=== PATIENT | male | born 1945 ===

== ENCOUNTER → 2018-09-27 18:03 | Outpatient (CLI) | payer MEDICARE, BC, SELFPAY ==
--- NOTE | 2018-09-27 18:08 | DI.MRI.S_ITS ---
PROCEDURE: MR STROKE Pre- and post-contrast brain MRI, non-contrast brain MR angiogram, pre- and postcontrast neck MR angiogram INDICATIONS: TIA TECHNIQUE: Brain: Noncontrast axial T1 spin echo, axial T2 fast spin echo, sagittal and axial FLAIR, coronal T2 fast spin echo, axial gradient echo, axial diffusion and ADC through the brain. After the administration of contrast, axial 3D VIBE of the cranial vasculature and brain. Brain MRA: Non-contrast 3-D time of flight MR angiogram, with multiple ctuovoi-eentgfmso-mlgtytfwzd (MIP) reformats performed. Neck MRA: Axial and sagittal TruFISP through the neck. Coronal dynamic MR angiogram during administration of contrast in the arterial and venous phases, with 3-dimenstional iomlhzy-gjdmqbgsg-pwkhjodvnv (MIP) reformats constructed from subtraction images. COMPARISON: [facility], , STROKE PROTOCOL, 11/12/2015, 12:50. FINDINGS: Image quality: Excellent. BRAIN: CSF spaces: Ventricles are normal in size and shape. Basal cisterns are patent. No extra-axial fluid collections. Brain: No intracranial bleeds or mass effects. Age related volume loss and moderate small vessel ischemic change. Diffusion weighted images show no acute ischemic insults. Brainstem appears normal. Again noted are numerous tiny foci of hemosiderin deposition bilaterally suggesting probable amyloid angiopathy. Normal intravascular flow voids are present. No abnormal intracranial enhancement. Skull and face: Calvarial marrow signal is normal. Orbits appear normal. Sinuses: Sinuses and mastoids are clear. BRAIN MR ANGIOGRAM: No stenoses, occlusions, or aneurysms. NECK MR ANGIOGRAM: Carotids: Great vessels demonstrate a conventional anatomy as they arise from the aortic arch. Again noted is a possible proximal left common carotid artery stenosis. The bifurcation regions appear normal bilaterally. The internal carotid arteries demonstrate normal course and caliber. Posterior circulation: The origins of the vertebral arteries appear patent. More superior portions of both vertebral arteries demonstrate normal course and caliber, and join to form a normal appearing basilar artery. Miscellaneous: Subclavian arteries appear patent. Pre-contrast images through the neck show no soft tissue abnormalities. IMPRESSION: BRAIN MRI: 1. No evidence acute stroke, hemorrhage, or mass. 2. Age related volume loss and moderate small vessel ischemic change. 3. Numerous tiny foci of hemosiderin deposition suggest probable amyloid angiopathy. BRAIN MR ANGIOGRAM: Unremarkable NECK MR ANGIOGRAM: Question proximal left common carotid artery stenosis. Otherwise unremarkable MR angiogram of the neck. Dictated by: Omkar Beltran M.D. on 09/27/2018 at 20:07 Approved by: Omkar Beltran M.D. on 09/27/2018 at 20:16
[2018-09-27 19:38] LABS: BUN Creatinine Ratio 23.6 (6-22); Blood Urea Nitrogen 26 mg/dL (9-20); Calcium 9.9 mg/dL (8.4-10.2); Carbon Dioxide 33 mmol/L (22-32); Chloride 101 mmol/L (98-107); Estimated Glomerular Filt Rate > 60.0 mL/min (>60); Glucose 76 mg/dL (80-110); HEMOLYSIS < 15 (0-50); Potassium 4.3 mmol/L (3.4-5.1); Sodium 140 mmol/L (137-145)
== END ==
PROVIDERS: Family Provider Internal Medicine; PCP Internal Medicine; Visit Provider Student in an Organized Health Care Education/Training Program
DX: G45.9 Transient cerebral ischemic attack, unspecified (principal); E78.5 Hyperlipidemia, unspecified
CPT/HCPCS: 36415; 70548; 70553; 80048; A9579

== ENCOUNTER → 2018-10-02 10:42 | Outpatient (CLI) | payer MEDICARE, BC, SELFPAY ==
--- NOTE | 2018-10-02 | DI.US.S_ITS ---
PROCEDURE: US CAROTID DOPPLER BI INDICATIONS: STENOSIS TECHNIQUE: Color and pulse Doppler interrogation was performed of both carotid systems, with image documentation and velocity measurements. COMPARISON: [facility], , MR STROKE, 09/27/2018, 18:19. [facility], [place], CAROTID ARTERY DOPPLER BILAT, 11/18/2008, 11:25. FINDINGS: Stenosis calculations are based on SRU (Society of Radi[employer] in Ultrasound) criteria. The flow velocities and the arterial waveforms are normal within both carotid arterial systems. Atherosclerotic plaque is seen on both sides. The estimated degree of internal carotid artery stenosis is less than 50%. Antegrade flow is confirmed within both vertebral arteries. IMPRESSION: No hemodynamically significant stenosis is seen. No common carotid stenosis is seen on this ultrasound to correspond to the suspected stenosis on prior recent MRI. Atherosclerotic plaque is noted bilaterally. No significant change from the prior carotid ultrasound. Dictated by: Dimitry Joseph M.D. on 10/02/2018 at 12:37 Approved by: Dimitry Joseph M.D. on 10/02/2018 at 12:38
== END ==
PROVIDERS: Family Provider Internal Medicine; PCP Internal Medicine; Visit Provider Student in an Organized Health Care Education/Training Program
DX: I65.23 Occlusion and stenosis of bilateral carotid arteries (principal); I77.1 Stricture of artery
CPT/HCPCS: 93880

== ENCOUNTER → 2019-10-20 08:28 | Outpatient (CLI) | payer MEDICARE, BC, SELFPAY ==
[2019-10-20 09:56] LABS: Alanine Aminotransferase 19 IU/L (<50); Albumin 4.2 g/dL (3.5-5.0); Albumin Globulin Ratio 1.4 (1.0-2.8); Alkaline Phosphatase 70 U/L (38-126); Aspartate Aminotransferase 37 IU/L (17-59); Bilirubin Total 0.7 mg/dL (0.2-1.3); Blood Urea Nitrogen 24 mg/dL (9-20); Calcium 10.2 mg/dL (8.4-10.2); Carbon Dioxide 33 mmol/L (22-32); Chloride 105 mmol/L (98-107); Estimated Glomerular Filt Rate > 60.0 mL/min (>60); Globulin 3.1 g/dL (1.7-4.1); Glucose 140 mg/dL (80-110); HEMOLYSIS < 15 (0-50); Potassium 5.2 mmol/L (3.4-5.1); Sodium 142 mmol/L (137-145); Total Protein 7.3 g/dL (6.3-8.2)
== END ==
PROVIDERS: Family Provider Internal Medicine; PCP Internal Medicine; Referring Provider Internal Medicine Cardiovascular Disease; Visit Provider Internal Medicine Cardiovascular Disease
DX: I10 Essential (primary) hypertension (principal)
CPT/HCPCS: 36415; 80053

== ENCOUNTER → 2019-10-20 09:41 | Outpatient (CLI) | payer MEDICARE, BC, SELFPAY ==
--- NOTE | 2019-10-20 | DI.RAD.S_ITS ---
PROCEDURE: XR HAND RT MIN 3V INDICATIONS: Rt hand pain TECHNIQUE: 3 views of the hand(s) acquired. COMPARISON: None. FINDINGS: Bones: There is a comminuted fracture of the proximal phalanx of the right 5th finger, with mild to moderate displacement. No definite intra-articular involvement is detected. No additional fractures are detected. Soft tissues: No suspicious soft tissue calcifications. IMPRESSION: Comminuted, mildly to moderately displaced fracture of the proximal phalanx of the 5th finger. Dictated by: Dimitry Joseph M.D. on 10/20/2019 at 9:56 Approved by: Dimitry Joseph M.D. on 10/20/2019 at 9:57
== END ==
PROVIDERS: Family Provider Internal Medicine; PCP Internal Medicine; Referring Provider Internal Medicine; Visit Provider Internal Medicine
DX: M79.641 Pain in right hand (principal); S62.616A Displaced fracture of proximal phalanx of right little finger, initial encounter for closed fracture
CPT/HCPCS: 73130

== ENCOUNTER → 2020-03-17 11:47 | Outpatient (CLI) | payer MEDICARE, BC, SELFPAY ==
[2020-03-19 16:31] LABS: QuantiFERON Nil Value 0.17 IU/mL (.); QuantiFERON TB Gold Plus Negative (Negative); QuantiFERON TB1 Ag Value 0.16 IU/mL (.); QuantiFERON TB2 Ag Value 0.17 IU/mL (.)
== END ==
PROVIDERS: Family Provider Internal Medicine; PCP Internal Medicine; Referring Provider Internal Medicine; Visit Provider Internal Medicine
DX: Z11.1 Encounter for screening for respiratory tuberculosis (principal)
CPT/HCPCS: 36415; 86480